=== PATIENT | male | born 1940 | race Caucasian/White ===

== ENCOUNTER 2017-07-11 08:30 | Inpatient (IN) | payer MEDICARE, BC ==
[2017-07-11] MEDS ORDERED: Amiodarone 200 MG Tab PO ONE (13:45)
[2017-07-11] MEDS ORDERED: Nystatin Crm 30 GM Tube TOP PRN (16:51)
[2017-07-11] MEDS ORDERED: Triamcinolone Acetonide 0.1% Crm 15 GM Tube TOP PRN (16:51)
[2017-07-11] MEDS ORDERED: Insulin Aspart 100 Units/ML 3 ML Pen SUBCUT SCH (17:00)
--- NOTE | 2017-07-11 19:03 | PCM.HP ---
H&P History of Present Illness - General Date of Service: 07/11/17 Admit Problem/Dx: Admission Diagnosis/Problem Admission Diagnosis/Problem Aortic valve disorder Source of Information: Patient, Old Records, Provider - History of Present Illness Initial Comments - Free Text/Narative: Patient is a 77-year-old male with a complicated history who was transferred here today for admission for swing bed for physical therapy and occupational therapy as the patient is quite debilitated after transcutaneous aortic valve replacement. A few months ago the patient was found to have kidney stones in both kidneys and in the bladder. He went to [place] to have lithotripsy and anesthesiology was concerned about his heart murmur. After he had his initial treatment, he underwent reassessment of his aortic valve and his aortic stenosis had worsened to the point where they recommended before they do the other side that they have a valve replaced. After valve replacement on 06/21/17, he had a very complicated postoperative course. He was unable to be extubated and had reduced level of consciousness. Ultimately was extubated on 07/02/2017 and transferred to intermediate care. He then had struggles with acute kidney injury, urinary tract infection, urinary retention after bladder catheter removal, replacement of catheter, debility, delirium and weakness. Today the patient feels weak but better. He is glad to be back in town and out of [facility]. He has no chest pain, no shortness of breath except with exertion, no nausea, vomiting or diarrhea. He's actually been constipated which is unusual for him. He had a bowel movement yesterday. Past medical history: #1 for severe aortic stenosis with TAVR on 06/11/17. Echo on 1020 postoperatively showed ejection fraction 55%. Normal left ventricular regional wall motion abnormalities. Grade 1 left ventricular diastolic dysfunction. Resolution of the patient's previous aortic stenosis. #2 history of remote colon cancer which was cured with resection. #3 history of coronary artery disease with CABG 4 in 2012. 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 #5 hypertension. #6 diabetes mellitus type 2, previously controlled with metformin alone at home. #7 gastroesophageal reflux disease. #8 obesity. #9 BPH. #10 bladder stones and bilateral kidney stones status post lithotripsy on the right side and the bladder. Lithotripsy on the left side pending. New issues at current hospitalization: #1 urinary tract infection currently on Ceftin for another 5 days. Cornejo catheter still in place. #2 hypokalemia. #3 recent anticoagulation with warfarin with goal 1.5-2 which was stopped at discharge. #4 Weakness and debility secondary to #1. Social history: The patient lives in [place], [place] in [facility]. He is single and has never been . He has no children. He is a nonsmoker, nondrinker. His sister is his next of kin, Sandra Philippe. Family history: The patient's mother of Alzheimer's at 77. The patient's father of some type of infection at 84. - Related Data Allergies/Adverse Reactions: Allergies Allergy/AdvReac Type Severity Reaction Status Date / Time No Known Allergies Allergy Verified 07/11/17 18:35 Home Medications: Home Meds Acetaminophen [Tylenol] 650 mg PO Q4H PRN 07/11/17 [History] Amiodarone HCl 400 mg PO TID 07/11/17 [History] Aspirin [Halfprin] 81 mg PO DAILY 07/11/17 [History] Cefuroxime [Ceftin] 500 mg PO BID 07/11/17 [History] Cholestyramine/Aspartame [Questran Light Powder] 4 gm PO WITHBREAKFAST 07/11/17 [History] Ferrous Sulfate 325 mg PO DAILY 07/11/17 [History] Finasteride 5 mg PO DAILY 07/11/17 [History] Gluc Donald Dipo Ch/Gustavo Donald/C/Ajay [Glucosamine Chondroitin Caplet] 1 tab PO BID 04/19 [History] Insulin Aspart [NovoLOG] 5 - 20 units SUBCUT Q4H 07/11/17 [History] Insulin Glarg,Human.Rec.Analog [Lantus Solostar] 15 units SUBCUT Q12H 07/11/17 [ History] Metoprolol Tartrate 12.5 mg PO DAILY 07/11/17 [History] Nystatin 1 applic TOP BID PRN 07/11/17 [History] Potassium Citrate [Urocit-K] 10 meq PO TIDMEALS 07/11/17 [History] Potassium Gluconate Tab 595 mg PO DAILY 07/11/17 [History] Ranitidine [Zantac] 150 mg PO BID 07/11/17 [History] Tamsulosin [Flomax] 0.4 mg PO DAILY 07/11/17 [History] Triamcinolone Acetonide [Triamcinolone Acetonide 0.1% Crm] 1 applic TOP BID PRN 07/11/17 [History] amLODIPine [Norvasc] 5 mg PO DAILY 07/11/17 [History] atorvaSTATin [Lipitor] 10 mg PO BEDTIME 07/11/17 [History] Past Medical History HEENT History: Reports: Impaired Vision Cardiovascular History: Reports: Bypass, Hypertension, Other (See Below) Other Cardiovascular History: aortic stenosis with RAN done, CHF Respiratory History: Reports: Intubation, Previous Gastrointestinal History: Reports: Cholelithiasis Endocrine/Metabolic History: Reports: Diabetes, Type II, Obesity/BMI 30+ Hematologic History: Reports: Iron Deficiency Oncologic (Cancer) History: Reports: Colon, Other (See Below) Other Oncologic History: skin cancer Dermatologic History: Reports: None - Infectious Disease History Infectious Disease History: Reports: Chicken Pox, Measles - Past Surgical History HEENT Surgical History: Reports: Adenoidectomy, Oral Surgery, Tonsillectomy Cardiovascular Surgical History: Reports: Coronary Artery Bypass, Valve Replacement Respiratory Surgical History: Reports: Thoracentesis GI Surgical History: Reports: Appendectomy, Cholecystectomy, Colonoscopy, Other (See Below) Other GI Surgeries/Procedures: colon resection Male Surgical History: Reports: Circumcision Endocrine Surgical History: Reports: None Musculoskeletal Surgical History: Reports: None Oncologic Surgical History: Reports: None Social & Family History - Family History Family Medical History: Noncontributory - Tobacco Use Smoking Status *Q: Never Smoker Second Hand Smoke Exposure: No - Caffeine Use Caffeine Use: Reports: Coffee - Recreational Drug Use Recreational Drug Use: No H&P Review of Systems - Review of Systems: Review Of Systems: ROS reveals no pertinent complaints other than HPI. Exam - Exam Exam: See Below - Vital Signs Vital Signs: Last Vital Signs Temp 36.4 C 07/11/17 10:37 Pulse 72 07/11/17 10:37 Resp 20 07/11/17 10:37 BP 121/54 L 07/11/17 10:37 Pulse Ox 93 L 07/11/17 10:37 Weight: 105.143 kg - Exam General: Alert, Oriented, Cooperative HEENT: PERRLA, Posterior Pharynx Clear Neck: Supple Lungs: Clear to Auscultation, Normal Respiratory Effort Cardiovascular: Regular Rate, Regular Rhythm, Normal S1, Normal S2, Systolic Murmur GI/Abdominal Exam: Normal Bowel Sounds, Soft, Non-Tender, No Distention Extremities: Pedal Edema (trace) Skin: Warm, Dry, Incision (left groin well healed.) Neuro Extensive - Mental Status: Alert, Oriented x3 Psychiatric: Alert (flat affect) *Q Meaningful Use (ADM) - VTE *Q VTE Criteria *Q: - Stroke *Q Stroke Criteria *Q: - AMI *Q AMI Criteria *Q: - Problem List (1) Debility SNOMED Code(s): 76219536 ICD Code: R53.81 - OTHER MALAISE Status: Acute Current Visit: Yes Problem Details: PT/OT to evaluate and treat. Avoid sedating medications. (2) S/P aortic valve replacement Status: Acute Current Visit: Yes Problem Details: Appears stable. Patient will follow-up with echocardiogram on 08/03 here in [place] and also with his primary care provider on the same date. (3) Diabetes mellitus type 2 in obese SNOMED Code(s): 41680313 ICD Code: E11.69 - TYPE 2 DIABETES MELLITUS WITH OTHER SPECIFIED COMPLICATION ; E66.9 - OBESITY, UNSPECIFIED Status: Acute Current Visit: Yes Problem Details: Patient previously controlled with metformin alone. We'll do insulin Levemir 15 units twice a day and glucometer checks as he has not required no coverage for 2 or 3 days. This may be able to be titrated down once the patient returns to his usual activities. He's lost about 100 pounds he thinks since 6 months ago. Was previously on 1000 mg twice a day metformin. (4) Cornejo catheter in place SNOMED Code(s): 337741707 ICD Code: Z92.89 - PERSONAL HISTORY OF OTHER MEDICAL TREATMENT Status: Acute Current Visit: Yes Problem Details: Discussed at length with the patient. In a day or 2, we will remove the catheter and straight catheterize until he is able to void. (5) Hypokalemia SNOMED Code(s): 50621976 ICD Code: E87.6 - HYPOKALEMIA Status: Acute Current Visit: Yes Problem Details: Recheck in a.m. (6) DVT prophylaxis SNOMED Code(s): 844810205 ICD Code: [id number] - Status: Acute Current Visit: Yes Problem Details: Patient was on warfarin. INR today was 2.5. We'll allow this to drift down. Once below 1.5 with a plan to start DVT coverage Lovenox unless the patient is much more active than he is currently. We will continue aspirin 81 mg daily. (7) Hypertension SNOMED Code(s): 17566429 ICD Code: I10 - ESSENTIAL (PRIMARY) HYPERTENSION Status: Acute Current Visit: Yes Problem Details: Blood pressure well controlled. Continue amiodarone and Norvasc. Patient was on metoprolol 25 mg by mouth twice a day in [place] but this was returned to his usual dose at home 12.5 mg by mouth daily on discharge. I'm going to continue this twice a day but at the lower dose. (8) Kidney stones SNOMED Code(s): 86031674 ICD Code: N20.0 - CALCULUS OF KIDNEY Status: Acute Current Visit: Yes Problem Details: Stable and pain-free at this time. (9) Hyperlipidemia SNOMED Code(s): 84371318 ICD Code: E78.5 - HYPERLIPIDEMIA, UNSPECIFIED Status: Acute Current Visit : Yes Problem Details: Patient normally on Questran. However he is constipated now and will hold while he is in the hospital. (10) JACKSON (acute kidney injury) SNOMED Code(s): 35356923 ICD Code: N17.9 - ACUTE KIDNEY FAILURE, UNSPECIFIED Status: Acute Current Visit: Yes Problem Details: Patient's previous outpatient creatinine prior to this recent hospitalization was from 1-1.2. Most recently in [place] is 1.3-1.7. Monitor. Problem List Initiated/Reviewed/Updated: Yes Orders Last 24hrs: Active Orders 24 hr Category Date Time Status Admission Status [Patient Status] [ADT] Routine ADT 07/11/17 09:15 Active OT Evaluation and Treatment [CONS] Routine Cons 07/11/17 14:23 Active PT Evaluation and Treatment [CONS] Routine Cons 07/11/17 14:23 Active Acetaminophen [Tylenol] Med 07/11/17 16:51 Active 650 mg PO Q4H PRN Amiodarone [Cordarone] Med 07/13/17 09:00 Active 400 mg PO BID Amiodarone [Cordarone] Med 07/20/17 09:00 Active 400 mg PO DAILY Amiodarone [Cordarone] Med 07/11/17 21:00 Active 400 mg PO TID Aspirin [Halfprin] Med 07/12/17 09:00 Active 81 mg PO DAILY Cefuroxime [Ceftin] Med 07/11/17 21:00 Active 500 mg PO BID Famotidine [Pepcid] Med 07/11/17 21:00 Active 20 mg PO BID Ferrous Sulfate Med 07/12/17 09:00 Active 325 mg PO DAILY Finasteride [Proscar] Med 07/12/17 09:00 Active 5 mg PO DAILY Insulin Detemir [Levemir] Med 07/11/17 21:00 Active 15 unit SUBCUT BID Metoprolol Tartrate [Lopressor] Med 07/11/17 21:00 Active 12.5 mg PO BID Nystatin [Nystatin Crm] Med 07/11/17 16:51 Active 0 gm TOP BID PRN Potassium Citrate Med 07/11/17 18:00 Active 10 meq PO TIDMEALS Tamsulosin [Flomax] Med 07/12/17 09:00 Active 0.4 mg PO DAILY Triamcinolone Acetonide [Triamcinolone Acetonide 0.1% Med 07/11/17 16:51 Active Crm] 0 gm TOP BID PRN amLODIPine [Norvasc] Med 07/12/17 09:00 Active 5 mg PO DAILY atorvaSTATin [Lipitor] Med 07/11/17 21:00 Active 10 mg PO BEDTIME Medication Orders Acetaminophen (Tylenol) 650 mg PO Q4H PRN PRN Reason: Pain/Fever Amiodarone HCl (Cordarone) 400 mg PO TID [facility] Stop: 07/12/17 21:01 Amiodarone HCl (Cordarone) 400 mg PO BID [facility] Stop: 07/19/17 21:01 Amiodarone HCl (Cordarone) 400 mg PO DAILY [facility] Amlodipine Besylate (Norvasc) 5 mg PO DAILY [facility] Aspirin (Halfprin) 81 mg PO DAILY [facility] Atorvastatin Calcium (Lipitor) 10 mg PO BEDTIME [facility] Cefuroxime Axetil (Ceftin) 500 mg PO BID [facility] Stop: 07/16/17 21:01 Famotidine (Pepcid) 20 mg PO BID [facility] Ferrous Sulfate (Ferrous Sulfate) 325 mg PO DAILY [facility] Finasteride (Proscar) 5 mg PO DAILY [facility] Insulin Detemir (Levemir) 15 unit SUBCUT BID [facility] Metoprolol Tartrate (Lopressor) 12.5 mg PO BID [facility] Nystatin (Nystatin Crm) 0 gm TOP BID PRN PRN Reason: Rash Potassium Citrate (Potassium Citrate) 10 meq PO TIDMEALS [facility] Tamsulosin HCl (Flomax) 0.4 mg PO DAILY [facility] Triamcinolone Acetonide (Triamcinolone Acetonide 0.1% Crm) 0 gm TOP BID PRN PRN Reason: Rash Assessment/Plan Comment:: CODE STATUS discussed with the patient on admission. The patient, if he were to stop breathing or have his heart stop beating, to , would want full resuscitation efforts. However, if he were to have a stroke he would not want a feeding tube if he was unable to feed himself. Thus Full code.
[2017-07-11] MEDS: Potassium Citrate 10 MEQ Tab.ER PO SCH (19:26)
[2017-07-11] MEDS: Acetaminophen 325 MG Tab PO PRN (19:30)
[2017-07-11] MEDS: Cefuroxime 250 MG Tab PO SCH (21:19)
[2017-07-11] MEDS: Amiodarone 200 MG Tab PO SCH (21:20)
[2017-07-11] MEDS: atorvaSTATin 10 MG Tab PO SCH (21:21)
[2017-07-11] MEDS: Famotidine 20 MG Tab PO SCH (21:22)
[2017-07-11] MEDS: Metoprolol Tartrate 25 MG Tab PO SCH (21:26)
[2017-07-11] MEDS: Insulin Detemir 100 Units/ML 3 ML Pen SUBCUT SCH (21:27)
[2017-07-12] MEDS: Acetaminophen 325 MG Tab PO PRN ×4 (03:31→16:31)
[2017-07-12] MEDS ORDERED: CHOLESTYRAMINE PO SCH (08:00)
[2017-07-12] MEDS ORDERED: ASPARTAME PO SCH (08:00)
[2017-07-12] MEDS: Insulin Detemir 100 Units/ML 3 ML Pen SUBCUT SCH ×2 (08:28→21:28)
[2017-07-12] MEDS: Potassium Citrate 10 MEQ Tab.ER PO SCH ×3 (08:29→17:29)
[2017-07-12] MEDS: Cefuroxime 250 MG Tab PO SCH ×2 (08:29→21:27)
[2017-07-12] MEDS: Amiodarone 200 MG Tab PO SCH ×3 (08:30→21:28)
[2017-07-12] MEDS: Ferrous Sulfate 325 MG Tab PO SCH (08:31)
[2017-07-12] MEDS: Finasteride 5 MG Tab PO SCH (08:31)
[2017-07-12] MEDS: Tamsulosin 0.4 MG Cap.ER PO SCH (08:31)
[2017-07-12] MEDS: amLODIPine 5 MG Tab PO SCH (08:31)
[2017-07-12] MEDS: Aspirin 81 MG Tab.EC PO SCH (08:31)
[2017-07-12] MEDS: Famotidine 20 MG Tab PO SCH ×2 (08:31→21:40)
[2017-07-12] MEDS: Metoprolol Tartrate 25 MG Tab PO SCH ×2 (08:32→21:39)
[2017-07-12] MEDS ORDERED: Metoprolol Tartrate 25 MG Tab PO SCH (09:00)
--- NOTE | 2017-07-12 16:18 | PCM.PN ---
- General Info Date of Service: 07/12/17 Subjective Update: 77 yo male on SB day #2. No chest pain, SOB, N/V. Had BM today. Therapy was difficult. - Patient Data Vitals - Most Recent: Last Vital Signs Temp 36.6 C 07/12/17 08:00 Pulse 68 07/12/17 08:32 Resp 20 07/12/17 08:00 BP 153/64 H 07/12/17 08:32 Pulse Ox 96 07/12/17 08:00 Weight - Most Recent: 105.143 kg I&O - Last 24 Hours: Intake & Output 07/12/17 07/12/17 07/12/17 06:59 14:59 22:59 Output Total 500 Balance -500 Lab Results Last 24 Hours: Laboratory Results - last 24 hr 07/11/17 07/12/17 07/12/17 Range/Units 22:37 06:46 06:46 WBC 7.0 (4.5-12.0) X10-3/uL RBC 3.54 L (4.30-5.75) x10(6)uL Hgb 10.3 L D (11.5-15.5) g/dL Hct 31.2 (30.0-51.3) % MCV 88.0 (80-96) fL MCH 29.1 (27.7-33.6) pg MCHC 33.1 (32.2-35.4) g/dL RDW 14.8 (11.5-15.5) % Plt Count 243 (125-369) X10(3)uL MPV 8.1 (7.4-10.4) fL Neut % (Auto) 66.8 (46-82) % Lymph % (Auto) 15.1 (13-37) % [place] % (Auto) 10.8 (4-12) % Eos % (Auto) 7 H (1.0-5.0) % Baso % (Auto) 1 (0-2) % Neut # (Auto) 4.6 (1.6-8.3) # Lymph # (Auto) 1.1 (0.6-5.0) # [place] # (Auto) 0.8 (0.0-1.3) # Eos # (Auto) 0.5 (0.0-0.8) # Baso # (Auto) 0.0 (0.0-0.2) # PT 29.3 H (8.7-11.1) INR 2.84 H (0.89-1.13) Sodium (135-145) mmol/L Potassium (3.5-5.3) mmol/L Chloride (100-110) mmol/L Carbon Dioxide (23-29) mmol/L BUN (8-23) mg/dL Creatinine (0.6-1.3) mg/dL Est Cr Clr Drug Dosing mL/min Estimated GFR (MDRD) (>60) BUN/Creatinine Ratio (9-20) Glucose (80-116) mg/dL POC Glucose 120 H (80-116) mg/dL Calcium (8.6-10.2) mg/dL Total Bilirubin (0.1-1.3) mg/dL AST (5-27) IU/L ALT (14-26) IU/L Alkaline Phosphatase (56-112) IU/L Total Protein (6.0-8.0) g/dL Albumin (3.2-4.6) g/dL Globulin g/dL Albumin/Globulin Ratio 07/12/17 Range/Units 06:46 WBC (4.5-12.0) X10-3/uL RBC (4.30-5.75) x10(6)uL Hgb (11.5-15.5) g/dL Hct (30.0-51.3) % MCV (80-96) fL MCH (27.7-33.6) pg MCHC (32.2-35.4) g/dL RDW (11.5-15.5) % Plt Count (125-369) X10(3)uL MPV (7.4-10.4) fL Neut % (Auto) (46-82) % Lymph % (Auto) (13-37) % [place] % (Auto) (4-12) % Eos % (Auto) (1.0-5.0) % Baso % (Auto) (0-2) % Neut # (Auto) (1.6-8.3) # Lymph # (Auto) (0.6-5.0) # [place] # (Auto) (0.0-1.3) # Eos # (Auto) (0.0-0.8) # Baso # (Auto) (0.0-0.2) # PT (8.7-11.1) INR (0.89-1.13) Sodium 135 (135-145) mmol/L Potassium 4.0 (3.5-5.3) mmol/L Chloride 101 (100-110) mmol/L Carbon Dioxide 26 (23-29) mmol/L BUN 29 H (8-23) mg/dL Creatinine 1.4 H (0.6-1.3) mg/dL Est Cr Clr Drug Dosing 43.43 mL/min Estimated GFR (MDRD) 49 L (>60) BUN/Creatinine Ratio 20.7 H (9-20) Glucose 148 H (80-116) mg/dL POC Glucose (80-116) mg/dL Calcium 8.2 L (8.6-10.2) mg/dL Total Bilirubin 0.7 (0.1-1.3) mg/dL AST 25 (5-27) IU/L ALT 32 H (14-26) IU/L Alkaline Phosphatase 92 (56-112) IU/L Total Protein 6.0 (6.0-8.0) g/dL Albumin 2.8 L (3.2-4.6) g/dL Globulin 3.2 g/dL Albumin/Globulin Ratio 0.9 Med Orders - Current: Current Medications Acetaminophen (Tylenol) 650 mg PO Q4H PRN PRN Reason: Pain/Fever Last Admin: 07/12/17 12:42 Dose: 650 mg Amiodarone HCl (Cordarone) 400 mg PO TID [facility] Stop: 07/12/17 21:01 Last Admin: 07/12/17 14:18 Dose: 400 mg Amiodarone HCl (Cordarone) 400 mg PO BID [facility] Stop: 07/19/17 21:01 Amiodarone HCl (Cordarone) 400 mg PO DAILY [facility] Amlodipine Besylate (Norvasc) 5 mg PO DAILY [facility] Last Admin: 07/12/17 08:31 Dose: 5 mg Aspirin (Halfprin) 81 mg PO DAILY [facility] Last Admin: 07/12/17 08:31 Dose: 81 mg Atorvastatin Calcium (Lipitor) 10 mg PO BEDTIME [facility] Last Admin: 07/11/17 21:21 Dose: 10 mg Cefuroxime Axetil (Ceftin) 500 mg PO BID [facility] Stop: 07/16/17 21:01 Last Admin: 07/12/17 08:29 Dose: 500 mg Famotidine (Pepcid) 20 mg PO BID [facility] Last Admin: 07/12/17 08:31 Dose: 20 mg Ferrous Sulfate (Ferrous Sulfate) 325 mg PO DAILY [facility] Last Admin: 07/12/17 08:31 Dose: 325 mg Finasteride (Proscar) 5 mg PO DAILY [facility] Last Admin: 07/12/17 08:31 Dose: 5 mg Insulin Detemir (Levemir) 15 unit SUBCUT BID [facility] Last Admin: 07/12/17 08:28 Dose: 15 unit Metoprolol Tartrate (Lopressor) 12.5 mg PO BID [facility] Last Admin: 07/12/17 08:32 Dose: 12.5 mg Nystatin (Nystatin Crm) 0 gm TOP BID PRN PRN Reason: Rash Potassium Citrate (Potassium Citrate) 10 meq PO TIDMEALS [facility] Last Admin: 07/12/17 12:30 Dose: 10 meq Tamsulosin HCl (Flomax) 0.4 mg PO DAILY [facility] Last Admin: 07/12/17 08:31 Dose: 0.4 mg Triamcinolone Acetonide (Triamcinolone Acetonide 0.1% Crm) 0 gm TOP BID PRN PRN Reason: Rash Discontinued Medications Amiodarone HCl (Cordarone) 400 mg PO ONETIME ONE Stop: 07/11/17 13:46 Last Admin: 07/11/17 15:04 Dose: 400 mg Metoprolol Tartrate (Lopressor) 12.5 mg PO DAILY [facility] Non-Formulary Medication (Cholestyramine/Aspartame [Questran Light Powder]) 4 gm PO WITHBREAKFAST [facility] - Exam Quality Assessment: Urine Catheter General: Alert, Oriented, Cooperative, No Acute Distress HEENT: Pupils Equal, Pupils Reactive Neck: Supple Lungs: Clear to Auscultation, Normal Respiratory Effort Cardiovascular: Regular Rate, Regular Rhythm (very little murmur today.) GI/Abdominal Exam: Normal Bowel Sounds, Soft, Non-Tender, No Distention Extremities: No Pedal Edema Skin: Warm, Dry (bruised throughout upper extremities.) Psy/Mental Status: Alert - Problem List & Annotations (1) Debility SNOMED Code(s): 45974939 Code(s): R53.81 - OTHER MALAISE Status: Acute Current Visit: Yes Annotation/Comment:: PT/OT to evaluate and treat. Avoid sedating medications. (2) S/P aortic valve replacement Status: Acute Current Visit: Yes Annotation/Comment:: Appears stable. Patient will follow-up with echocardiogram on 08/03 here in [place] and also with his primary care provider on the same date. (3) Diabetes mellitus type 2 in obese SNOMED Code(s): 79630240 Code(s): E11.69 - TYPE 2 DIABETES MELLITUS WITH OTHER SPECIFIED COMPLICATION ; E66.9 - OBESITY, UNSPECIFIED Status: Acute Current Visit: Yes Annotation /Comment:: Patient previously controlled with metformin 1000 mg BID alone. Levemir 15 units BID. BID glucometer checks. Will d/c night levemir if blood sugars come down with activity. Restart metformin when creatinine stabilizes. (4) Cornejo catheter in place SNOMED Code(s): 685616659 Code(s): Z92.89 - PERSONAL HISTORY OF OTHER MEDICAL TREATMENT Status: Acute Current Visit: Yes Annotation/Comment:: Clamping now. Will remove tomorrow am if all goes well. (5) Hypokalemia SNOMED Code(s): 43556080 Code(s): E87.6 - HYPOKALEMIA Status: Acute Current Visit: Yes Annotation/Comment:: Back to normal. (6) DVT prophylaxis SNOMED Code(s): 324833081 Code(s): UDB6218 - Status: Acute Current Visit: Yes Annotation/Comment :: 2.8 today. Once below 1.5 with a plan to start DVT coverage Lovenox unless the patient is much more active than he is currently. We will continue aspirin 81 mg daily. (7) Hypertension SNOMED Code(s): 47014136 Code(s): I10 - ESSENTIAL (PRIMARY) HYPERTENSION Status: Acute Current Visit: Yes Annotation/Comment:: Blood pressure well controlled. Continue amiodarone and Norvasc, metoprolol. (8) Kidney stones SNOMED Code(s): 27279674 Code(s): N20.0 - CALCULUS OF KIDNEY Status: Acute Current Visit: Yes Annotation/Comment:: Stable and pain-free at this time. (9) Hyperlipidemia SNOMED Code(s): 16476016 Code(s): E78.5 - HYPERLIPIDEMIA, UNSPECIFIED Status: Acute Current Visit : Yes Annotation/Comment:: Patient normally on Questran. However he is constipated now and will hold while he is in the hospital. (10) JACKSON (acute kidney injury) SNOMED Code(s): 31973838 Code(s): N17.9 - ACUTE KIDNEY FAILURE, UNSPECIFIED Status: Acute Current Visit: Yes Annotation/Comment:: Patient's previous outpatient creatinine prior to this recent hospitalization was from 1-1.2. Most recently in [place] is 1.3-1.7. Monitor. - Problem List Review Problem List Initiated/Reviewed/Updated: Yes - My Orders Last 24 Hours: My Active Orders 07/11/17 16:51 Acetaminophen [Tylenol] 650 mg PO Q4H PRN Nystatin [Nystatin Crm] 0 gm TOP BID PRN Triamcinolone Acetonide [Triamcinolone Acetonide 0.1% Crm] 0 gm TOP BID PRN 07/11/17 18:00 Potassium Citrate 10 meq PO TIDMEALS 07/11/17 19:18 Code Status [Resuscitation Status] Routine 07/11/17 21:00 Amiodarone [Cordarone] 400 mg PO TID Cefuroxime [Ceftin] 500 mg PO BID Famotidine [Pepcid] 20 mg PO BID Insulin Detemir [Levemir] 15 unit SUBCUT BID Metoprolol Tartrate [Lopressor] 12.5 mg PO BID atorvaSTATin [Lipitor] 10 mg PO BEDTIME 07/12/17 09:00 Aspirin [Halfprin] 81 mg PO DAILY Ferrous Sulfate 325 mg PO DAILY Finasteride [Proscar] 5 mg PO DAILY Tamsulosin [Flomax] 0.4 mg PO DAILY amLODIPine [Norvasc] 5 mg PO DAILY 07/12/17 Lunch Heart Healthy Diet [DIET] 07/13/17 05:11 CBC WITH AUTO DIFF [HEME] AM COMPREHENSIVE METABOLIC PN,CMP [CHEM] AM 07/13/17 09:00 Amiodarone [Cordarone] 400 mg PO BID 07/20/17 09:00 Amiodarone [Cordarone] 400 mg PO DAILY - Plan Plan:: CODE STATUS discussed with the patient on admission. The patient, if he were to stop breathing or have his heart stop beating, to , would want full resuscitation efforts. However, if he were to have a stroke he would not want a feeding tube if he was unable to feed himself. Thus Full code.
[2017-07-12] MEDS: atorvaSTATin 10 MG Tab PO SCH (21:31)
[2017-07-13] MEDS: Potassium Citrate 10 MEQ Tab.ER PO SCH ×3 (08:03→18:02)
[2017-07-13] MEDS: Ferrous Sulfate 325 MG Tab PO SCH (08:04)
[2017-07-13] MEDS: Amiodarone 200 MG Tab PO SCH ×2 (08:04→20:10)
[2017-07-13] MEDS: Tamsulosin 0.4 MG Cap.ER PO SCH (08:04)
[2017-07-13] MEDS: Insulin Detemir 100 Units/ML 3 ML Pen SUBCUT SCH ×2 (08:04→20:12)
[2017-07-13] MEDS: Cefuroxime 250 MG Tab PO SCH ×2 (08:04→20:09)
[2017-07-13] MEDS: Aspirin 81 MG Tab.EC PO SCH (08:04)
[2017-07-13] MEDS: Metoprolol Tartrate 25 MG Tab PO SCH ×2 (08:05→20:16)
[2017-07-13] MEDS: amLODIPine 5 MG Tab PO SCH (08:06)
[2017-07-13] MEDS: Acetaminophen 325 MG Tab PO PRN ×2 (08:06→13:29)
[2017-07-13] MEDS: Finasteride 5 MG Tab PO SCH (08:06)
[2017-07-13] MEDS: Famotidine 20 MG Tab PO SCH ×2 (08:06→20:17)
--- NOTE | 2017-07-13 17:42 | PCM.PN ---
- General Info Date of Service: 07/13/17 - Patient Data Vitals - Most Recent: Last Vital Signs Temp 97.5 F 07/13/17 08:00 Pulse 92 07/13/17 08:05 Resp 18 07/13/17 08:00 BP 156/72 H 07/13/17 08:06 Pulse Ox 96 07/13/17 08:00 Weight - Most Recent: 105.506 kg I&O - Last 24 Hours: Intake & Output 07/13/17 07/13/17 07/13/17 06:59 14:59 22:59 Intake Total 600 Output Total 850 Balance -850 600 Lab Results Last 24 Hours: Laboratory Results - last 24 hr 07/13/17 07/13/17 Range/Units 06:30 06:30 WBC 7.6 (4.5-12.0) X10-3/uL RBC 3.60 L (4.30-5.75) x10(6)uL Hgb 10.6 L (11.5-15.5) g/dL Hct 31.4 (30.0-51.3) % MCV 87.3 (80-96) fL MCH 29.4 (27.7-33.6) pg MCHC 33.7 (32.2-35.4) g/dL RDW 14.3 (11.5-15.5) % Plt Count 223 (125-369) X10(3)uL MPV 8.1 (7.4-10.4) fL Neut % (Auto) 73.1 (46-82) % Lymph % (Auto) 12.3 L (13-37) % [facility] % (Auto) 9.8 (4-12) % Eos % (Auto) 5 (1.0-5.0) % Baso % (Auto) 0 (0-2) % Neut # (Auto) 5.6 (1.6-8.3) # Lymph # (Auto) 0.9 (0.6-5.0) # [facility] # (Auto) 0.7 (0.0-1.3) # Eos # (Auto) 0.4 (0.0-0.8) # Baso # (Auto) 0.0 (0.0-0.2) # Sodium 136 (135-145) mmol/L Potassium 4.0 (3.5-5.3) mmol/L Chloride 104 (100-110) mmol/L Carbon Dioxide 24 (23-29) mmol/L BUN 21 (8-23) mg/dL Creatinine 1.3 (0.6-1.3) mg/dL Est Cr Clr Drug Dosing 46.77 mL/min Estimated GFR (MDRD) 54 L (>60) BUN/Creatinine Ratio 16.2 (9-20) Glucose 109 (80-116) mg/dL Calcium 8.4 L (8.6-10.2) mg/dL Total Bilirubin 0.8 (0.1-1.3) mg/dL AST 24 (5-27) IU/L ALT 28 H D (14-26) IU/L Alkaline Phosphatase 87 (56-112) IU/L Total Protein 6.7 (6.0-8.0) g/dL Albumin 2.8 L (3.2-4.6) g/dL Globulin 3.9 g/dL Albumin/Globulin Ratio 0.7 Med Orders - Current: Current Medications Acetaminophen (Tylenol) 650 mg PO Q4H PRN PRN Reason: Pain/Fever Last Admin: 07/13/17 13:29 Dose: 650 mg Amiodarone HCl (Cordarone) 400 mg PO BID [facility] Stop: 07/19/17 21:01 Last Admin: 07/13/17 08:04 Dose: 400 mg Amiodarone HCl (Cordarone) 400 mg PO DAILY [facility] Amlodipine Besylate (Norvasc) 5 mg PO DAILY [facility] Last Admin: 07/13/17 08:06 Dose: 5 mg Aspirin (Halfprin) 81 mg PO DAILY [facility] Last Admin: 07/13/17 08:04 Dose: 81 mg Atorvastatin Calcium (Lipitor) 10 mg PO BEDTIME [facility] Last Admin: 07/12/17 21:31 Dose: 10 mg Cefuroxime Axetil (Ceftin) 500 mg PO BID [facility] Stop: 07/16/17 21:01 Last Admin: 07/13/17 08:04 Dose: 500 mg Famotidine (Pepcid) 20 mg PO BID [facility] Last Admin: 07/13/17 08:06 Dose: 20 mg Ferrous Sulfate (Ferrous Sulfate) 325 mg PO DAILY [facility] Last Admin: 07/13/17 08:04 Dose: 325 mg Finasteride (Proscar) 5 mg PO DAILY [facility] Last Admin: 07/13/17 08:06 Dose: 5 mg Insulin Detemir (Levemir) 15 unit SUBCUT BID [facility] Last Admin: 07/13/17 08:04 Dose: 15 unit Metoprolol Tartrate (Lopressor) 12.5 mg PO BID [facility] Last Admin: 07/13/17 08:05 Dose: 12.5 mg Nystatin (Nystatin Crm) 0 gm TOP BID PRN PRN Reason: Rash Potassium Citrate (Potassium Citrate) 10 meq PO TIDMEALS [facility] Last Admin: 07/13/17 13:26 Dose: 10 meq Tamsulosin HCl (Flomax) 0.4 mg PO DAILY [facility] Last Admin: 07/13/17 08:04 Dose: 0.4 mg Triamcinolone Acetonide (Triamcinolone Acetonide 0.1% Crm) 0 gm TOP BID PRN PRN Reason: Rash Discontinued Medications Amiodarone HCl (Cordarone) 400 mg PO ONETIME ONE Stop: 07/11/17 13:46 Last Admin: 07/11/17 15:04 Dose: 400 mg Amiodarone HCl (Cordarone) 400 mg PO TID [facility] Stop: 07/12/17 21:01 Last Admin: 07/12/17 21:28 Dose: 400 mg Metoprolol Tartrate (Lopressor) 12.5 mg PO DAILY [facility] Non-Formulary Medication (Cholestyramine/Aspartame [Questran Light Powder]) 4 gm PO WITHBREAKFAST [facility] - Plan Plan:: CODE STATUS discussed with the patient on admission. The patient, if he were to stop breathing or have his heart stop beating, to , would want full resuscitation efforts. However, if he were to have a stroke he would not want a feeding tube if he was unable to feed himself. Thus Full code.
[2017-07-13] MEDS: atorvaSTATin 10 MG Tab PO SCH (20:11)
[2017-07-14] MEDS: Acetaminophen 325 MG Tab PO PRN (07:01)
[2017-07-14] MEDS: Cefuroxime 250 MG Tab PO SCH ×2 (09:23→21:06)
[2017-07-14] MEDS: Potassium Citrate 10 MEQ Tab.ER PO SCH ×3 (09:23→18:41)
[2017-07-14] MEDS: Amiodarone 200 MG Tab PO SCH ×2 (09:24→21:06)
[2017-07-14] MEDS: Aspirin 81 MG Tab.EC PO SCH (09:25)
[2017-07-14] MEDS: Ferrous Sulfate 325 MG Tab PO SCH (09:25)
[2017-07-14] MEDS: Tamsulosin 0.4 MG Cap.ER PO SCH (09:26)
[2017-07-14] MEDS: Insulin Detemir 100 Units/ML 3 ML Pen SUBCUT SCH ×2 (09:27→21:28)
[2017-07-14] MEDS: Metoprolol Tartrate 25 MG Tab PO SCH ×2 (09:28→21:07)
[2017-07-14] MEDS: amLODIPine 5 MG Tab PO SCH (09:28)
[2017-07-14] MEDS: Famotidine 20 MG Tab PO SCH ×2 (09:29→21:09)
[2017-07-14] MEDS: Finasteride 5 MG Tab PO SCH (09:29)
[2017-07-14] MEDS: atorvaSTATin 10 MG Tab PO SCH (21:07)
[2017-07-15] MEDS: Acetaminophen 325 MG Tab PO PRN ×3 (00:53→21:20)
[2017-07-15] MEDS: Potassium Citrate 10 MEQ Tab.ER PO SCH ×3 (07:33→17:50)
[2017-07-15] MEDS: Finasteride 5 MG Tab PO SCH (09:21)
[2017-07-15] MEDS: Tamsulosin 0.4 MG Cap.ER PO SCH (09:21)
[2017-07-15] MEDS: Metoprolol Tartrate 25 MG Tab PO SCH ×2 (09:21→21:08)
[2017-07-15] MEDS: Famotidine 20 MG Tab PO SCH ×2 (09:22→21:09)
[2017-07-15] MEDS: Cefuroxime 250 MG Tab PO SCH ×2 (09:22→21:07)
[2017-07-15] MEDS: Amiodarone 200 MG Tab PO SCH ×2 (09:22→21:08)
[2017-07-15] MEDS: Aspirin 81 MG Tab.EC PO SCH (09:23)
[2017-07-15] MEDS: Ferrous Sulfate 325 MG Tab PO SCH (09:23)
[2017-07-15] MEDS: Insulin Detemir 100 Units/ML 3 ML Pen SUBCUT SCH ×2 (09:23→21:10)
[2017-07-15] MEDS: amLODIPine 5 MG Tab PO SCH (11:06)
[2017-07-15] MEDS ORDERED: busPIRone 5 MG Tab ONE ×2 (21:04→21:06)
[2017-07-15] MEDS: busPIRone 10 MG Tab PO SCH (21:07)
[2017-07-15] MEDS: atorvaSTATin 10 MG Tab PO SCH (21:08)
[2017-07-16] MEDS: Acetaminophen 325 MG Tab PO PRN ×2 (05:08→09:05)
[2017-07-16] MEDS: Famotidine 20 MG Tab PO SCH ×2 (08:48→22:04)
[2017-07-16] MEDS: Ferrous Sulfate 325 MG Tab PO SCH (08:48)
[2017-07-16] MEDS: busPIRone 10 MG Tab PO SCH ×2 (08:48→22:02)
[2017-07-16] MEDS: amLODIPine 5 MG Tab PO SCH (08:49)
[2017-07-16] MEDS: Metoprolol Tartrate 25 MG Tab PO SCH ×2 (08:49→22:03)
[2017-07-16] MEDS: Finasteride 5 MG Tab PO SCH (08:49)
[2017-07-16] MEDS: Aspirin 81 MG Tab.EC PO SCH (08:50)
[2017-07-16] MEDS: Tamsulosin 0.4 MG Cap.ER PO SCH (08:50)
[2017-07-16] MEDS: Amiodarone 200 MG Tab PO SCH ×2 (08:50→22:02)
[2017-07-16] MEDS: Cefuroxime 250 MG Tab PO SCH ×2 (08:51→22:02)
[2017-07-16] MEDS: Potassium Citrate 10 MEQ Tab.ER PO SCH ×3 (08:51→18:38)
[2017-07-16] MEDS: Insulin Detemir 100 Units/ML 3 ML Pen SUBCUT SCH ×2 (08:55→22:02)
[2017-07-16] MEDS ORDERED: Triamcinolone Acetonide 40 MG/ML 1 ML MDV INJECT ONE (14:40)
[2017-07-16] MEDS ORDERED: Bupivacaine 0.5% 30 ML SDV INJECT ONE (14:40)
[2017-07-16] MEDS ORDERED: Lidocaine 2% 5 ML SDV INJECT ONE (15:15)
--- NOTE | 2017-07-16 17:17 | PCM.SN ---
- Free Text/Narrative Note: 07/16/2017: Procedure note: Bilateral knee injections Reason: Pain, degenerative arthritis Time out: completed. see chart. Allergies: none Contraindications: none. Procedure: Removal of galindo cath. no complications with removal, however anderson blood was noted to drip from the urethral meatus roughly 1 cc. will monitor.
[2017-07-16] MEDS: atorvaSTATin 10 MG Tab PO SCH (22:03)
[2017-07-16] MEDS: Acetaminophen 500 MG Tab PO SCH (22:04)
[2017-07-17] MEDS: Acetaminophen 325 MG Tab PO PRN (07:50)
[2017-07-17] MEDS: Potassium Citrate 10 MEQ Tab.ER PO SCH ×3 (08:30→18:05)
[2017-07-17] MEDS: busPIRone 10 MG Tab PO SCH ×2 (09:36→20:46)
[2017-07-17] MEDS: Tamsulosin 0.4 MG Cap.ER PO SCH (09:37)
[2017-07-17] MEDS: Amiodarone 200 MG Tab PO SCH ×2 (09:37→20:46)
[2017-07-17] MEDS: Ferrous Sulfate 325 MG Tab PO SCH (09:37)
[2017-07-17] MEDS: Aspirin 81 MG Tab.EC PO SCH (09:37)
[2017-07-17] MEDS: Metoprolol Tartrate 25 MG Tab PO SCH ×2 (09:38→20:47)
[2017-07-17] MEDS: amLODIPine 5 MG Tab PO SCH (09:38)
[2017-07-17] MEDS: Famotidine 20 MG Tab PO SCH ×2 (09:39→20:47)
[2017-07-17] MEDS: Finasteride 5 MG Tab PO SCH (09:39)
[2017-07-17] MEDS ORDERED: Fluconazole 150 MG Tab PO ONE (10:10)
[2017-07-17] MEDS: Insulin Detemir 100 Units/ML 3 ML Pen SUBCUT SCH (10:25)
[2017-07-17] MEDS: Acetaminophen 500 MG Tab PO SCH ×2 (12:24→20:47)
[2017-07-17] MEDS: atorvaSTATin 10 MG Tab PO SCH (20:46)
[2017-07-18] MEDS: Metoprolol Tartrate 25 MG Tab PO SCH ×2 (08:51→20:39)
[2017-07-18] MEDS: busPIRone 10 MG Tab PO SCH ×2 (08:51→20:41)
[2017-07-18] MEDS: Potassium Citrate 10 MEQ Tab.ER PO SCH ×3 (08:51→17:52)
[2017-07-18] MEDS: Tamsulosin 0.4 MG Cap.ER PO SCH (08:51)
[2017-07-18] MEDS: Aspirin 81 MG Tab.EC PO SCH (08:51)
[2017-07-18] MEDS: Ferrous Sulfate 325 MG Tab PO SCH (08:51)
[2017-07-18] MEDS: Amiodarone 200 MG Tab PO SCH ×2 (08:51→20:38)
[2017-07-18] MEDS: amLODIPine 5 MG Tab PO SCH (08:52)
[2017-07-18] MEDS: Famotidine 20 MG Tab PO SCH ×2 (08:52→20:38)
[2017-07-18] MEDS: Finasteride 5 MG Tab PO SCH (08:52)
[2017-07-18] MEDS: Acetaminophen 500 MG Tab PO SCH ×2 (08:52→20:38)
[2017-07-18] MEDS: guaiFENesin 600 MG Tab.ER PO PRN ×2 (15:53→22:06)
[2017-07-18] MEDS: metFORMIN 1,000 MG Tab PO SCH (17:52)
[2017-07-18] MEDS: atorvaSTATin 10 MG Tab PO SCH (20:38)
[2017-07-19] MEDS: guaiFENesin 600 MG Tab.ER PO PRN ×2 (06:35→16:52)
[2017-07-19] MEDS: Potassium Citrate 10 MEQ Tab.ER PO SCH ×3 (07:30→17:12)
[2017-07-19] MEDS: metFORMIN 1,000 MG Tab PO SCH ×2 (07:31→17:12)
[2017-07-19] MEDS: Acetaminophen 500 MG Tab PO SCH ×2 (08:08→21:45)
[2017-07-19] MEDS: busPIRone 10 MG Tab PO SCH ×2 (08:38→21:42)
[2017-07-19] MEDS: Amiodarone 200 MG Tab PO SCH ×2 (08:38→21:42)
[2017-07-19] MEDS: Ferrous Sulfate 325 MG Tab PO SCH (08:39)
[2017-07-19] MEDS: Aspirin 81 MG Tab.EC PO SCH (08:39)
[2017-07-19] MEDS: Tamsulosin 0.4 MG Cap.ER PO SCH (08:39)
[2017-07-19] MEDS: Metoprolol Tartrate 25 MG Tab PO SCH (08:39)
[2017-07-19] MEDS: Famotidine 20 MG Tab PO SCH ×2 (08:39→21:44)
[2017-07-19] MEDS: amLODIPine 5 MG Tab PO SCH (08:39)
[2017-07-19] MEDS: Finasteride 5 MG Tab PO SCH (08:40)
--- NOTE | 2017-07-19 17:28 | PCM.DCSUM1 ---
Discharge Summary - Discharge Data Discharge Date: 07/20/17 Discharge Disposition: Home, W Home Health Agency 06 Condition: Good - Discharge Diagnosis/Problem(s) (1) S/P aortic valve replacement Status: Acute Current Visit: Yes Problem Details: Appears stable. Patient will follow-up with echocardiogram on 08/03 here in [place] and also with his primary care provider on the same date. (2) Primary osteoarthritis of knees, bilateral SNOMED Code(s): 808721818 ICD Code: M17.0 - BILATERAL PRIMARY OSTEOARTHRITIS OF KNEE Status: Acute Current Visit: Yes (3) Yeast cystitis SNOMED Code(s): 824921306 ICD Code: B37.41 - CANDIDAL CYSTITIS AND URETHRITIS Status: Acute Current Visit: Yes (4) Recurrent pain of both knees SNOMED Code(s): 75923494 ICD Code: M25.561 - PAIN IN RIGHT KNEE; M25.562 - PAIN IN LEFT KNEE Status : Acute Current Visit: Yes - Patient Summary/Data Operative Procedure(s) Performed: Bilateral Knee injections for OA. (kenalog 40mg/2%lidocaine plain-2ml/0.5% marcaine- 2ml) to each knee using inferior medial approach without complication. -Dr. Danielle Magana MD Consults: Consultations 07/11/17 14:23 OT Evaluation and Treatment [CONS] Routine Please Evaluate and Treat. OT Reason for Consult: Strengthening This query below is only for informational purposes and is not editable. Admission Diagnosis/Problem: Aortic valve disorder PT Evaluation and Treatment [CONS] Routine Please Evaluate and Treat. PT Reason for Consult: Strengthening This query below is only for informational purposes and is not editable. Admission Diagnosis/Problem: Aortic valve disorder - Patient Instructions Diet: Heart Healthy Diet Activity: As Tolerated, Cough & Deep Breathe Driving: May Drive Today Showering/Bathing: May Shower Notify Provider of: Fever, Increased Pain, Nausea and/or Vomiting Other/Special Instructions: inability to void. - Discharge Plan Home Medications: Home Meds Acetaminophen [Tylenol] 650 mg PO Q4H PRN 07/11/17 [History] Amiodarone HCl 400 mg PO DAILY 07/11/17 [History] Aspirin [Halfprin] 81 mg PO DAILY 07/11/17 [History] Cefuroxime [Ceftin] 500 mg PO BID 07/11/17 [History] Cholestyramine/Aspartame [Questran Light Powder] 4 gm PO WITHBREAKFAST 07/11/17 [History] Ferrous Sulfate 325 mg PO DAILY 07/11/17 [History] Finasteride 5 mg PO DAILY 07/11/17 [History] Gluc Donald Dipo Ch/Gustavo Donald/C/Ajay [Glucosamine Chondroitin Caplet] 1 tab PO BID 04/19 [History] Metoprolol Tartrate 12.5 mg PO DAILY 07/11/17 [History] Nystatin 1 applic TOP BID PRN 07/11/17 [History] Potassium Citrate [Urocit-K] 10 meq PO TIDMEALS 07/11/17 [History] Potassium Gluconate Tab 595 mg PO DAILY 07/11/17 [History] Ranitidine [Zantac] 150 mg PO BID 07/11/17 [History] Tamsulosin [Flomax] 0.4 mg PO DAILY 07/11/17 [History] Triamcinolone Acetonide [Triamcinolone Acetonide 0.1% Crm] 1 applic TOP BID PRN 07/11/17 [History] amLODIPine [Norvasc] 5 mg PO DAILY 07/11/17 [History] atorvaSTATin [Lipitor] 10 mg PO BEDTIME 07/11/17 [History] metFORMIN [Glucophage] 1,000 mg PO BIDMEALS 07/19/17 [History] Patient Handouts: Type 2 Diabetes Mellitus, Adult, Amiodarone tablets, Buspirone tablets, Fall Prevention in Hospitals, Adult, Venous Thromboembolism Prevention - Discharge Summary/Plan Comment DC Time >30 min.: Yes - Patient Data Vitals - Most Recent: Last Vital Signs Temp 97.9 F 07/19/17 08:00 Pulse 60 07/19/17 08:39 Resp 18 07/19/17 08:00 BP 129/60 07/19/17 08:39 Pulse Ox 97 07/19/17 08:00 Weight - Most Recent: 105.506 kg Lab Results - Last 24 hrs: Laboratory Results - last 24 hr 07/19/17 Range/Units 08:20 POC Glucose 137 H (80-116) mg/dL Med Orders - Current: Current Medications Acetaminophen (Tylenol) 650 mg PO Q4H PRN PRN Reason: Pain/Fever Last Admin: 07/17/17 07:50 Dose: 650 mg Acetaminophen (Tylenol Extra Strength) 1,000 mg PO BID [facility] Last Admin: 07/19/17 08:08 Dose: 1,000 mg Amiodarone HCl (Cordarone) 400 mg PO BID [facility] Stop: 07/19/17 21:01 Last Admin: 07/19/17 08:38 Dose: 400 mg Amiodarone HCl (Cordarone) 400 mg PO DAILY [facility] Amlodipine Besylate (Norvasc) 5 mg PO DAILY [facility] Last Admin: 07/19/17 08:39 Dose: 5 mg Aspirin (Halfprin) 81 mg PO DAILY [facility] Last Admin: 07/19/17 08:39 Dose: 81 mg Atorvastatin Calcium (Lipitor) 10 mg PO BEDTIME [facility] Last Admin: 07/18/17 20:38 Dose: 10 mg Buspirone HCl (Buspar) 10 mg PO BID [facility] Last Admin: 07/19/17 08:38 Dose: 10 mg Famotidine (Pepcid) 20 mg PO BID [facility] Last Admin: 07/19/17 08:39 Dose: 20 mg Ferrous Sulfate (Ferrous Sulfate) 325 mg PO DAILY [facility] Last Admin: 07/19/17 08:39 Dose: 325 mg Finasteride (Proscar) 5 mg PO DAILY [facility] Last Admin: 07/19/17 08:40 Dose: 5 mg Guaifenesin (Mucinex) 600 mg PO TID PRN PRN Reason: Cough Last Admin: 07/19/17 16:52 Dose: 600 mg Metformin HCl (Glucophage) 1,000 mg PO BIDMEALS [facility] Last Admin: 07/19/17 17:12 Dose: 1,000 mg Metoprolol Tartrate (Lopressor) 12.5 mg PO DAILY [facility] Nystatin (Nystatin Crm) 0 gm TOP BID PRN PRN Reason: Rash Potassium Citrate (Potassium Citrate) 10 meq PO TIDMEALS [facility] Last Admin: 07/19/17 17:12 Dose: 10 meq Tamsulosin HCl (Flomax) 0.4 mg PO DAILY [facility] Last Admin: 07/19/17 08:39 Dose: 0.4 mg Triamcinolone Acetonide (Triamcinolone Acetonide 0.1% Crm) 0 gm TOP BID PRN PRN Reason: Rash Discontinued Medications Amiodarone HCl (Cordarone) 400 mg PO ONETIME ONE Stop: 07/11/17 13:46 Last Admin: 07/11/17 15:04 Dose: 400 mg Amiodarone HCl (Cordarone) 400 mg PO TID [facility] Stop: 07/12/17 21:01 Last Admin: 07/12/17 21:28 Dose: 400 mg Bupivacaine HCl (Marcaine 0.5%) 30 ml INJECT ONETIME ONE Stop: 07/16/17 14:41 Last Admin: 07/17/17 02:37 Dose: Not Given Buspirone HCl (Buspar) Confirm Administered Dose 5 mg .ROUTE .STK-MED ONE Stop: 07/15/17 21:05 Last Admin: 07/15/17 22:13 Dose: Not Given Buspirone HCl (Buspar) Confirm Administered Dose 5 mg .ROUTE .STK-MED ONE Stop: 07/15/17 21:07 Last Admin: 07/15/17 22:13 Dose: Not Given Cefuroxime Axetil (Ceftin) 500 mg PO BID [facility] Stop: 07/16/17 21:01 Last Admin: 07/16/17 22:02 Dose: 500 mg Fluconazole (Diflucan) 150 mg PO ONETIME ONE Stop: 07/17/17 10:11 Last Admin: 07/17/17 12:24 Dose: 150 mg Insulin Detemir (Levemir) 15 unit SUBCUT BID [facility] Last Admin: 07/17/17 10:25 Dose: 15 unit Lidocaine (Xylocaine-Mpf 2%) 10 ml INJECT ONETIME ONE Stop: 07/16/17 15:16 Last Admin: 07/17/17 02:38 Dose: Not Given Metoprolol Tartrate (Lopressor) 12.5 mg PO DAILY [facility] Metoprolol Tartrate (Lopressor) 12.5 mg PO BID [facility] Last Admin: 07/19/17 08:39 Dose: 12.5 mg Non-Formulary Medication (Cholestyramine/Aspartame [Questran Light Powder]) 4 gm PO WITHBREAKFAST [facility] Triamcinolone Acetonide (Kenalog-40) 40 mg INJECT ONETIME ONE Stop: 07/16/17 14:41 Last Admin: 07/17/17 02:37 Dose: Not Given *Q Meaningful Use (DIS) - VTE *Q VTE Criteria *Q: - Stroke *Q Stroke Criteria *Q: - AMI *Q AMI Criteria *Q:
[2017-07-19] MEDS ORDERED: guaiFENesin/Dextromethorphan 100-10 MG/5 ML Soln 5 ML Cup PO PRN (19:26)
[2017-07-19] MEDS: atorvaSTATin 10 MG Tab PO SCH (21:43)
[2017-07-19] MEDS: guaiFENesin/Dextromethorphan 100-10 MG/5 ML Soln 5 ML Cup PO PRN (21:46)
[2017-07-20] MEDS: guaiFENesin/Dextromethorphan 100-10 MG/5 ML Soln 5 ML Cup PO PRN ×2 (03:33→10:52)
[2017-07-20] MEDS: Acetaminophen 325 MG Tab PO PRN (06:42)
[2017-07-20] MEDS: metFORMIN 1,000 MG Tab PO SCH (08:06)
[2017-07-20] MEDS: Potassium Citrate 10 MEQ Tab.ER PO SCH (08:06)
[2017-07-20] MEDS: Aspirin 81 MG Tab.EC PO SCH (08:55)
[2017-07-20] MEDS: Finasteride 5 MG Tab PO SCH (08:56)
[2017-07-20] MEDS: Tamsulosin 0.4 MG Cap.ER PO SCH (08:56)
[2017-07-20] MEDS: Ferrous Sulfate 325 MG Tab PO SCH (08:56)
[2017-07-20] MEDS: busPIRone 10 MG Tab PO SCH (08:56)
[2017-07-20] MEDS: amLODIPine 5 MG Tab PO SCH (08:56)
[2017-07-20] MEDS: Famotidine 20 MG Tab PO SCH (08:56)
[2017-07-20] MEDS ORDERED: Amiodarone 200 MG Tab PO SCH (09:00)
[2017-07-20] MEDS ORDERED: Metoprolol Tartrate 25 MG Tab PO SCH (09:00)
[2017-07-20] MEDS: Acetaminophen 500 MG Tab PO SCH (10:52)
--- NOTE | 2017-07-21 05:21 | DISCH ---
DISCHARGE DATE: 07/20/2017 REASON FOR ADMISSION: 1. Status post aortic valve replacement. 2. Debility. 3. Type 2 diabetes. 4. Anxiety. 5. Hypertension. 6. History of kidney stones. 7. Hyperlipidemia. 8. Generalized weakness. 9. Cardiac rehab. CONSULTATIONS: Physical and Occupational Therapy. BRIEF HISTORY AND HOSPITAL COURSE: This 77-year-old male was brought in on the 8th after aortic valve replacement on 06/21/2017. He had a complicated postoperative course and had to spend some time in the ICU. He was extubated on 07/02/2017. He had some struggles with acute kidney injury, UTI, delirium, and weakness, and was sent here for rehab and strengthening. He has done well physically speaking, and he is being discharged today to cardiac rehab. DISCHARGE MEDICATIONS: 1. Aspirin 81 mg a day. 2. Acetaminophen p.r.n. 3. Amiodarone 400 mg a day. 4. Amlodipine 5 mg a day. 5. Lipitor 10 mg daily. 6. BuSpar 10 mg b.i.d. 7. Famotidine 20 mg b.i.d. 8. Ferrous sulfate 325 mg a day. 9. Finasteride 5 mg daily. 10.Metoprolol 12.5 mg a day. 11.Tamsulosin 0.4 mg daily. Please note that I spent more than 35 minutes in discharge of the patient, and he will continue with physical therapy and cardiac rehab at home. /[id number] SAMM/ELDER
== END 2017-07-20 12:05 | disposition home health service (06) | DRG 948 ==
LOC: FB.MS 09:57
PROVIDERS: ADMIT Family Medicine; ATTEND Family Medicine
PROC: 3E0U33Z Introduction of Anti-inflammatory into Joints, Percutaneous Approach (ICD-10-PCS; principal; 2017-07-16)
PROC: 3E0U3BZ Introduction of Anesthetic Agent into Joints, Percutaneous Approach (ICD-10-PCS; 2017-07-16)
DX: R53.81 Other malaise (principal); N39.0 Urinary tract infection, site not specified; N17.9 Acute kidney failure, unspecified; Z95.2 Presence of prosthetic heart valve; Z98.890 Other specified postprocedural states; E11.69 Type 2 diabetes mellitus with other specified complication; Z79.4 Long term (current) use of insulin; E66.9 Obesity, unspecified; I25.10 Atherosclerotic heart disease of native coronary artery without angina pectoris; Z95.1 Presence of aortocoronary bypass graft; K21.9 Gastro-esophageal reflux disease without esophagitis; H54.7 Unspecified visual loss; E87.6 Hypokalemia; E78.5 Hyperlipidemia, unspecified; M17.0 Bilateral primary osteoarthritis of knee; I10 Essential (primary) hypertension; Z85.038 Personal history of other malignant neoplasm of large intestine; Z85.828 Personal history of other malignant neoplasm of skin; Z87.442 Personal history of urinary calculi; N40.0 Benign prostatic hyperplasia without lower urinary tract symptoms; Z79.82 Long term (current) use of aspirin
CPT/HCPCS: 36415; 51701; 80048; 80053; 81001; 82962; 83036; 85025; 85610; 87086; 97110-GO; 97110-GP; 97112-GP; 97116-GP; 97162-GP; 97165-GO; 97530-GO-KX; 97530-GP; 97535-GO; A9270-GY

== ENCOUNTER 2018-01-09 19:10 | Emergency (ER) | payer MEDICARE, BC ==
--- NOTE | 2018-01-09 20:26 | EDM.PDOC ---
ED HPI GENERAL MEDICAL PROBLEM - General Chief Complaint: Genitourinary Problem Time Seen by Provider: 01/09/18 19:21 Source of Information: Reports: Patient History Limitations: Reports: No Limitations - History of Present Illness INITIAL COMMENTS - FREE TEXT/NARRATIVE: c/o abd pain pain in suprapubic area, unable to void x 24h, able to void yesterday altho would take 2 voids to empty completely, nocturia x 1-2 last night, today has not been able to empty his bladder, inc'd pressure not had a galindo in the past except 06/19 when in [place] for volve replacement h/o kidney and bladder stones says he has prostate problems, sees urologist Dr Hirsch, not able to be more specific, thinks he is not on prostate meds altho his med list includes tamsulosin no f/c/d otherwise feeling well no n/v - Related Data Allergies Allergy/AdvReac Type Severity Reaction Status Date / Time No Known Allergies Allergy Verified 01/09/18 19:20 Home Meds: Home Meds Acetaminophen [Tylenol] 650 mg PO Q4H PRN 07/11/17 [History] Aspirin [Halfprin] 81 mg PO DAILY 07/11/17 [History] Ferrous Sulfate 325 mg PO DAILY 07/11/17 [History] Finasteride 5 mg PO DAILY 07/11/17 [History] Gluc Donald Dipo Ch/Gustavo Donald/C/Ajay [Glucosamine Chondroitin Caplet] 1 tab PO BID 04/19 [History] Metoprolol Tartrate 12.5 mg PO DAILY 07/11/17 [History] Potassium Citrate [Urocit-K] 10 meq PO TIDMEALS 07/11/17 [History] Ranitidine [Zantac] 150 mg PO BID 07/11/17 [History] Tamsulosin [Flomax] 0.4 mg PO DAILY 07/11/17 [History] amLODIPine [Norvasc] 5 mg PO DAILY 07/11/17 [History] atorvaSTATin [Lipitor] 10 mg PO BEDTIME 07/11/17 [History] metFORMIN [Glucophage] 1,000 mg PO BIDMEALS 07/19/17 [History] Amiodarone [Cordarone] 400 mg PO DAILY #60 tablet 07/20/17 [Rx] busPIRone [Buspar] 10 mg PO BID #60 tab 07/20/17 [Rx] Ciprofloxacin HCl [Cipro] 500 mg PO BID #28 tablet 01/09/18 [Rx] Past Medical History HEENT History: Reports: Impaired Vision Cardiovascular History: Reports: Bypass, Hypertension, Other (See Below) Other Cardiovascular History: aortic stenosis with RAN done, CHF Respiratory History: Reports: Intubation, Previous Gastrointestinal History: Reports: Cholelithiasis Endocrine/Metabolic History: Reports: Diabetes, Type II, Obesity/BMI 30+ Hematologic History: Reports: Iron Deficiency Oncologic (Cancer) History: Reports: Colon, Other (See Below) Other Oncologic History: skin cancer Dermatologic History: Reports: None - Infectious Disease History Infectious Disease History: Reports: Chicken Pox, Measles - Past Surgical History HEENT Surgical History: Reports: Adenoidectomy, Oral Surgery, Tonsillectomy Cardiovascular Surgical History: Reports: Coronary Artery Bypass, Valve Replacement Respiratory Surgical History: Reports: Thoracentesis GI Surgical History: Reports: Appendectomy, Cholecystectomy, Colonoscopy, Other (See Below) Other GI Surgeries/Procedures: colon resection Male Surgical History: Reports: Circumcision Endocrine Surgical History: Reports: None Musculoskeletal Surgical History: Reports: None Oncologic Surgical History: Reports: None Social & Family History - Family History Family Medical History: Noncontributory - Caffeine Use Caffeine Use: Reports: Coffee ED ROS GENERAL - Review of Systems Review Of Systems: See Below Constitutional: Reports: No Symptoms HEENT: Reports: No Symptoms Respiratory: Reports: No Symptoms Cardiovascular: Reports: No Symptoms Endocrine: Reports: No Symptoms GI/Abdominal: Reports: Abdominal Pain. Denies: Nausea, Vomiting : Reports: Frequency, Pain, Urgency, Urinary Retention Musculoskeletal: Reports: No Symptoms. Denies: Back Pain Skin: Reports: No Symptoms Neurological: Reports: No Symptoms Psychiatric: Reports: No Symptoms Hematologic/Lymphatic: Reports: No Symptoms Immunologic: Reports: No Symptoms ED EXAM, RENAL/ - Physical Exam Exam: See Below Exam Limited By: No Limitations General Appearance: Alert, WD/WN, No Apparent Distress Ears: Normal External Exam, Normal Canal, Hearing Grossly Normal Nose: Normal Inspection, Normal Mucosa, No Blood Throat/Mouth: Normal Inspection, Normal Lips, Normal Voice, No Airway Compromise Head: Atraumatic, Normocephalic Neck: Normal Inspection, Supple, Non-Tender, Full Range of Motion Respiratory/Chest: No Respiratory Distress, Lungs Clear, Normal Breath Sounds, No Accessory Muscle Use, Chest Non-Tender Cardiovascular: Regular Rate, Rhythm, No Edema, No Gallop, No Rub, Other ( midline scar, 2/6 HAKEEM at LSB, quiet precordium) GI/Abdominal: Normal Bowel Sounds, Soft, Other (mild tender suprapubic, bladder seems full 1/[address] to umbilicus) Back Exam: Normal Inspection, Full Range of Motion. No: CVA Tenderness (R), CVA Tenderness (L) Extremities: Normal Inspection, Normal Range of Motion, Non-Tender, No Pedal Edema Neurological: Alert, Oriented, CN II-XII Intact, Normal Cognition, No Motor/ Sensory Deficits Psychiatric: Normal Affect, Normal Mood Skin Exam: Warm, Dry, Intact, Normal Color, No Rash Lymphatic: No Adenopathy Course - Vital Signs Last Recorded V/S: Last Vital Signs Temp 36.6 C 01/09/18 19:10 Pulse 65 01/09/18 19:10 Resp 20 01/09/18 19:10 BP 167/61 H 01/09/18 19:10 Pulse Ox 99 01/09/18 19:10 - Orders/Labs/Meds Orders: Active Orders 24 hr Category Date Time Status Insert Urinary Catheter [OM.PC] Q24H Care 01/09/18 20:00 Ordered Urinary Catheter Assessment [RC] QSHIFT Care 01/09/18 19:57 Active CULTURE URINE [RM] Stat Lab 01/09/18 21:20 Ordered UA W/MICROSCOPIC [URIN] Stat Lab 01/09/18 20:08 Ordered Ciprofloxacin [Ciprofloxacin HCl] Med 01/09/18 21:38 Once 500 mg PO ONETIME ONE Labs: Laboratory Tests 01/09/18 01/09/18 01/09/18 Range/Units 20:08 20:45 20:45 WBC 6.3 (4.5-12.0) X10-3/uL RBC 4.19 L (4.30-5.75) x10(6)uL Hgb 12.8 (11.5-15.5) g/dL Hct 38.3 (30.0-51.3) % MCV 91.3 (80-96) fL MCH 30.6 (27.7-33.6) pg MCHC 33.5 (32.2-35.4) g/dL RDW 17.3 H (11.5-15.5) % Plt Count 182 (125-369) X10(3)uL MPV 7.9 (7.4-10.4) fL Neut % (Auto) 73.3 (46-82) % Lymph % (Auto) 14.6 (13-37) % [place] % (Auto) 8.8 (4-12) % Eos % (Auto) 2 (1.0-5.0) % Baso % (Auto) 1 (0-2) % Neut # (Auto) 4.5 (1.6-8.3) # Lymph # (Auto) 0.9 (0.6-5.0) # [place] # (Auto) 0.6 (0.0-1.3) # Eos # (Auto) 0.2 (0.0-0.8) # Baso # (Auto) 0.1 (0.0-0.2) # Sodium 139 (135-145) mmol/L Potassium 4.6 (3.5-5.3) mmol/L Chloride 103 (100-110) mmol/L Carbon Dioxide 25 (21-32) mmol/L BUN 20 H (7-18) mg/dL Creatinine 1.5 H (0.70-1.30) mg/dL Est Cr Clr Drug Dosing 39.17 mL/min Estimated GFR (MDRD) 46 L (>60) BUN/Creatinine Ratio 13.3 (9-20) Glucose 113 (80-116) mg/dL Calcium 9.0 (8.6-10.2) mg/dL Total Bilirubin 0.4 (0.1-1.3) mg/dL AST 30 H (5-25) IU/L ALT 43 H (12-36) U/L Alkaline Phosphatase 93 (56-112) IU/L C-Reactive Protein (0.5-0.9) mg/dL Total Protein 7.1 (6.0-8.0) g/dL Albumin 3.5 (3.2-4.6) g/dL Globulin 3.6 g/dL Albumin/Globulin Ratio 1.0 Urine Color Yellow (YELLOW) Urine Appearance Slightly cloudy (CLEAR) Urine pH 5.0 (5.0-6.5) Ur Specific [place] 1.010 (1.010-1.025) Urine Protein Negative (NEGATIVE) mg/dL Urine Glucose (UA) Normal (NEGATIVE) mg/dL Urine Ketones Negative (NEGATIVE) mg/dL Urine Occult Blood Trace (NEGATIVE) Urine Nitrite Negative (NEGATIVE) Urine Bilirubin Negative (NEGATIVE) Urine Urobilinogen Normal (NEGATIVE) mg/dL Ur Leukocyte Esterase Small H (NEGATIVE) Urine RBC 5-10 (0) Urine WBC 20-30 H (0) Ur Squamous Epith Cells Rare (NS,R,O) Urine Bacteria Rare H (NS) 01/09/18 Range/Units 20:45 WBC (4.5-12.0) X10-3/uL RBC (4.30-5.75) x10(6)uL Hgb (11.5-15.5) g/dL Hct (30.0-51.3) % MCV (80-96) fL MCH (27.7-33.6) pg MCHC (32.2-35.4) g/dL RDW (11.5-15.5) % Plt Count (125-369) X10(3)uL MPV (7.4-10.4) fL Neut % (Auto) (46-82) % Lymph % (Auto) (13-37) % [place] % (Auto) (4-12) % Eos % (Auto) (1.0-5.0) % Baso % (Auto) (0-2) % Neut # (Auto) (1.6-8.3) # Lymph # (Auto) (0.6-5.0) # [place] # (Auto) (0.0-1.3) # Eos # (Auto) (0.0-0.8) # Baso # (Auto) (0.0-0.2) # Sodium (135-145) mmol/L Potassium (3.5-5.3) mmol/L Chloride (100-110) mmol/L Carbon Dioxide (21-32) mmol/L BUN (7-18) mg/dL Creatinine (0.70-1.30) mg/dL Est Cr Clr Drug Dosing mL/min Estimated GFR (MDRD) (>60) BUN/Creatinine Ratio (9-20) Glucose (80-116) mg/dL Calcium (8.6-10.2) mg/dL Total Bilirubin (0.1-1.3) mg/dL AST (5-25) IU/L ALT (12-36) U/L Alkaline Phosphatase (56-112) IU/L C-Reactive Protein < 0.2 L (0.5-0.9) mg/dL Total Protein (6.0-8.0) g/dL Albumin (3.2-4.6) g/dL Globulin g/dL Albumin/Globulin Ratio Urine Color (YELLOW) Urine Appearance (CLEAR) Urine pH (5.0-6.5) Ur Specific [place] (1.010-1.025) Urine Protein (NEGATIVE) mg/dL Urine Glucose (UA) (NEGATIVE) mg/dL Urine Ketones (NEGATIVE) mg/dL Urine Occult Blood (NEGATIVE) Urine Nitrite (NEGATIVE) Urine Bilirubin (NEGATIVE) Urine Urobilinogen (NEGATIVE) mg/dL Ur Leukocyte Esterase (NEGATIVE) Urine RBC (0) Urine WBC (0) Ur Squamous Epith Cells (NS,R,O) Urine Bacteria (NS) - Re-Assessments/Exams Free Text/Narrative Re-Assessment/Exam: 01/09/18 21:39 pt now reports that he had gone to the ED in [facility] with a prostate infection and a R testicle that had swollen up like a golf ball, tx with an antbx x 2w, he thinks the antbx began with the letter "z", he saw Dr Hirsch after returning home and he did not continue the antbx beyond the 2w now on rectal exam pt has 2-3+ prostate that is smooth and symmetric, ballooning out, no nodule, mild pressure but no inc'd pain from usual on palpation, while technically not soft, it does feel distended and full of fluid pt agrees to f/u with Dr Hirsch u/a shows 20-30 WBC but only trace bacteria, which is c/w acute prostatitis Departure - Departure Time of Disposition: 21:42 Disposition: Home, Self-Care 01 Condition: Good Clinical Impression: Acute prostatitis, Urinary obstruction, Acute on chronic renal insufficiency, Elevated liver function tests - Discharge Information Prescriptions: Ciprofloxacin HCl [Cipro] 500 mg PO BID #28 tablet Instructions: Prostatitis, Indwelling Urinary Catheter Care, Adult, Easy-to- Read Referrals: Edmundo Glasgow MD [Primary Care Provider] - Forms: ED Department Discharge Additional Instructions: Continue current meds. For infection, take ciprofloxacin 500 mg 1 tab 2 times a day for 2 weeks. Empty the urine bag several times a day. See Dr Hirsch in the next several days. Return to ED if you are feeling worse. Call your Physician or Return to Emergency Department if: * Your condition worsens in any way. * You develop fever greater than 100.4. * You have vomitting that does not stop with medications. * You have pain that is not controlled with medications. - My Orders Last 24 Hours: My Active Orders 01/09/18 19:57 Urinary Catheter Assessment [[facility]] [facility] 01/09/18 20:00 Insert Urinary Catheter [OM.PC] Q24H 01/09/18 20:08 UA W/MICROSCOPIC [URIN] Stat 01/09/18 21:20 CULTURE URINE [RM] Stat 01/09/18 21:38 Ciprofloxacin [Ciprofloxacin HCl] 500 mg PO ONETIME ONE - Assessment/Plan Last 24 Hours: My Active Orders 01/09/18 19:57 Urinary Catheter Assessment [RC] [facility] 01/09/18 20:00 Insert Urinary Catheter [OM.PC] Q24H 01/09/18 20:08 UA W/MICROSCOPIC [URIN] Stat 01/09/18 21:20 CULTURE URINE [RM] Stat 01/09/18 21:38 Ciprofloxacin [Ciprofloxacin HCl] 500 mg PO ONETIME ONE
[2018-01-09] MEDS ORDERED: Ciprofloxacin 500 MG Tab PO ONE (21:38)
== END 2018-01-09 22:05 | disposition home or self-care (01) ==
LOC: FB.ED 19:10
DX: N41.0 Acute prostatitis (principal); R39.89 Other symptoms and signs involving the genitourinary system; R79.89 Other specified abnormal findings of blood chemistry; I13.0 Hypertensive heart and chronic kidney disease with heart failure and stage 1 through stage 4 chronic kidney disease, or unspecified chronic kidney disease; I50.9 Heart failure, unspecified; N13.9 Obstructive and reflux uropathy, unspecified; N18.9 Chronic kidney disease, unspecified; N28.9 Disorder of kidney and ureter, unspecified; E66.9 Obesity, unspecified; Z79.82 Long term (current) use of aspirin; Z79.899 Other long term (current) drug therapy
CPT/HCPCS: 36415; 51702; 51798; 80053; 81001; 85025; 86140; 87086; 99284; A9270

== ENCOUNTER 2018-01-13 16:51 | Emergency (ER) | payer MEDICARE, BC ==
[2018-01-13] MEDS: Lidocaine 2% Jelly 5 ML Urojet MUCMEM ONE (17:45)
[2018-01-14] MEDS: Lidocaine 2% Jelly 5 ML Urojet MUCMEM ONE (20:53)
--- NOTE | 2018-01-15 04:32 | ER ---
DATE SEEN: 01/13/2018 PAST MEDICAL HISTORY: Significant for hypertension, myocardial infarction, CVA, CABG, four-vessel disease, several stents placed, diabetes, borderline diabetes. History of weight dropped from 337 pounds down to 225 pounds. He lives alone in [place], [place]. Brain aneurysm with a clip in 1997, without complication. Colon cancer. Kidney infection . Major cystitis. Bladder and prostate obstruction. He has bovine aortic valve replacements. Takes aspirin on daily basis. REVIEW OF SYSTEMS: He has shortness of breath with walking, dyspnea on exertion 250 feet. Uses a walker, in mild weakness after recent infection. /[id number] SHYLA/ELDER
--- NOTE | 2018-01-15 13:53 | ER ---
DATE SEEN: 01/13/2018 TIME SEEN: The patient was seen at 1705 hours. HISTORY OF PRESENT ILLNESS: Evangelista has difficulty passing urine. He is 77 years old, has been seen by urologist 2 days ago. Catheter removed. The prior week, he had difficulty passing urine, so a #16 Cornejo catheter was placed and he has gotten along reasonably well. Now, he has a plugged catheter. He denies fever, back pain, shortness of breath, coughing, abdominal discomfort. He notes the urine is being passed around his catheter since 0300 to 0400 hours today. He is accompanied by his nephew, who notes the Cornejo is not draining. He has increased abdominal discomfort in the lower abdomen. On 01/09/2018, he had a Cornejo placed, was seen by [facility] urologist Dr. Valdez, ( another relative said Dr. Garcia is his regular urologist), 2 days ago, and has two large bladder stones within the bladder in addition to the enlarged prostate. Laser lithotripsy is planned with possible removal of bladder stones on 02/27/2018.An the family notes abigail is in the too distant future. Denies fever, nausea, vomiting, diarrhea, constipation, or blood in the stools. PAST MEDICAL HISTORY: History of diabetes, previous kidney stones, DVT prophylaxis, hypertension, hyperlipidemia, cystitis, knee pain, bilateral knee arthritis, and acute prostatitis. CURRENT MEDICATIONS: 1. Iron sulfate. 2. Aspirin. 3. Amiodarone 400 mg. 4. Acetaminophen. 5. Finasteride 5 mg. 6. Flomax 0.8 mg at bedtime. 7. Potassium citrate. 8. Metoprolol tartrate 12.5 mg daily. 9. Glucosamine chondroitin. 10.Metformin 1000 mg b.i.d. 11.BuSpar 10 mg b.i.d. 12.Atorvastatin 10 mg at bedtime. ALLERGIES: None. REVIEW OF SYSTEMS: Negative except as noted above. PHYSICAL EXAMINATION: VITAL SIGNS: Blood pressure 151/55, heart rate 70 and regular, respirations 18, oxygen saturation 99%, and temperature is 36.6 degrees centigrade. GENERAL: This is an overweight gentleman who is in moderate discomfort. He has a very pleasant disposition. HEENT: Without abnormality. LUNGS: Clear without rales or rhonchi. HEART: S1, S2. No murmur. He does have sinus rhythm. ABDOMEN: Soft and suprapubic discomfort. Moderate distention with tenderness to suprapubic region. No CVA percussion tenderness. Genitalia negative with a catheter in place. It is plugged though and urine semi-dark urine. EXTREMITIES: Lower extremities with trace of edema. Deep tendon reflexes hypoactive. Cornejo catheter was placed with lidocaine gel without difficulty or complications A bladder scan initially 55 mL noted pre- catheter placement. Consequently, hydration increased. He had moderate cloudy urine. Old catheter was removed. A new catheter was placed because there was fair flow, the bladder was flushed, and resulted in better flows of the catheter. A 20 mL normal saline bladder flush resulted in immediate return of cloudy urine. Urine Cornejo bag reconnected to the system. The patient was then dismissed to follow up with the urologist as soon as he can make those arrangements. Use (Cipro) antibiotics he is currently on. /[id number] SHYLA/ELDER AYALA
== END 2018-01-13 18:10 | disposition home or self-care (01) ==
LOC: FB.ED 16:51
DX: T83.091A Other mechanical complication of indwelling urethral catheter, initial encounter (principal); N41.9 Inflammatory disease of prostate, unspecified; N13.9 Obstructive and reflux uropathy, unspecified; E11.9 Type 2 diabetes mellitus without complications; I10 Essential (primary) hypertension; Z79.899 Other long term (current) drug therapy
CPT/HCPCS: 51702; 51798; 99283

== ENCOUNTER 2018-01-15 11:47 | Emergency (ER) | payer MEDICARE, BC ==
[2018-01-15] MEDS: Balsam Peru/Castor Oil/Trypsin Spray 56.7 GM Canister TOP SCH (12:40)
[2018-01-15] MEDS: Balsam Peru/Castor Oil/Trypsin Spray 56.7 GM Canister ONE (12:40)
--- NOTE | 2018-01-16 11:38 | ER ---
DATE SEEN: 01/15/2018 TIME SEEN: The patient was seen after his arrival. HISTORY OF PRESENT ILLNESS: Evangelista Chandler was seen frequently this last week. He is a 77-year-old male with diabetes; renal stones; DVT prophylaxis, not on anticoagulants, presently uses aspirin; hypertension; dyslipidemia; cystitis; knee pain; bilateral knee arthritis; prostatism; urinary outlet obstruction; history of myocardial infarction; CVA; four-vessel CABG, several stents; weight loss from 337 to 225 pounds; brain aneurysm clipping in 1997; colon cancer; renal infection, 11/18; and bovine aortic valve replacement with aspirin. CURRENT MEDICATIONS: As listed on the previous day's dictation: 1. Iron. 2. Aspirin. 3. Amiodarone. 4. Acetaminophen. 5. Finasteride. 6. Flomax. 7. Potassium. 8. Metoprolol. 9. Glucosamine. 10.Metformin. 11.BuSpar. 12.Atorvastatin. The patient specifically was seen by urologist on 01/11/2018. Arrangements were made for 02/27/2018, lithotripsy of 2 stones in his bladder. He now comes in on 01/15/2018 after having been seen for his bladder problem. He had a 16-gauge catheter placed approximately a week ago because of outlet obstruction because of the stones and increased sediments in the bladder. On 01/13/2018 complained that he cannot pass urine, his catheter is plugged, and he is passing urine around his catheter, subsequently catheter was replaced. Now, he has returned 2 days later with complaints that he has pain in his bladder and also he cannot pass urine, and urine is going around the catheter. He sees Dr. Garcia. On examination, the patient is in moderate distress. He is "out of sorts." He is here with his granddaughter and nephew. He stated that he cannot go on like this. He needs to have something done, and he cannot go back and forth to the emergency room every other day. He had difficulty sleeping last night. Currently, he is taking Cipro 500 mg b.i.d. and has been on it for at least 7 days. REVIEW OF SYSTEMS: He denies fever, back pain, sore throat, chest pain, irregular heartbeat, shortness of breath, or cough. He has mild suprapubic discomfort, most of the discomfort in the penis and scrotum. On examination, he has ulcers being developed on the foreskin on the right-hand side, at the catheter's exit. The catheter is somewhat taut and is tethered by the catheter leg support. It is tighter than it should be. I have discussed the patient's status with Dr. Garcia. Arrangements were made for Interventional Radiology to place a suprapubic catheter until he gets his lithotripsy completed, per Dr. Garcia who thought perhaps can be completed next week. This is a great relief to the patient and his family. This diminished his stress. They feel like this can bring closure to the problem. I have spoken to Dr. Fonseca, Interventional Radiology, that he would be willing to have this procedure completed today ( this evening) at the hospital and get there before 1630 hours. The patient has been n.p.o. Arrangements have been made. The catheter was removed in the ER per his request and previous discussion. We are waiting for further disposition. The office of Dr. Garcia has done a wonderful job, bringing closure and making arrangements for the suprapubic Interventional Radiology to be done today. The patient is relieved and pleased. He can be transferred by his nephew to [facility], n.p.o. DIAGNOSES: Prostatism with outlet obstruction, relieved by catheterization with 2 large stones of bladder causing increased debris and exfoliation of intra- vesicle debris, plugging of catheters frequently. Lithotripsy to be performed. OTHER DIAGNOSES: Diabetes, bovine aortic valve replacement, brain aneurysm clipping, colon cancer, CABG four-vessel, several stents, hypertension, myocardial infarction, old cerebrovascular accident, previous DVT and is no longer on prophylaxis, hypertension, dyslipidemia, knee pain, bilateral knee arthritis. /[id number] SHYLA/ELDER AYALA
== END 2018-01-15 14:25 | disposition other institution (70) ==
LOC: FB.ED 11:47
DX: N40.1 Benign prostatic hyperplasia with lower urinary tract symptoms (principal); N13.8 Other obstructive and reflux uropathy; E11.9 Type 2 diabetes mellitus without complications; I25.2 Old myocardial infarction; I10 Essential (primary) hypertension; Z79.84 Long term (current) use of oral hypoglycemic drugs; Z86.73 Personal history of transient ischemic attack (TIA), and cerebral infarction without residual deficits; Z86.718 Personal history of other venous thrombosis and embolism
CPT/HCPCS: 99283; A9270

== ENCOUNTER 2018-01-28 20:58 | Emergency (ER) | payer MEDICARE, BC ==
[2018-01-28] MEDS ORDERED: Fluconazole 150 MG Tab PO ONE (22:20)
[2018-01-28] MEDS ORDERED: Sulfamethoxazole/Trimethoprim 800-160 MG Tab PO ONE (22:27)
--- NOTE | 2018-01-29 02:01 | ER ---
DATE SEEN: 01/28/2018 REASON FOR VISIT: Evaluate for infection. HISTORY OF PRESENT ILLNESS: This is a 77-year-old male here with the family. He had a suprapubic catheter placed about 2 weeks ago. They have noted purulent drainage from the wound and not much drainage into the bag. In addition, he has been weak and feeling unmotivated but has had no fever or chills. He was supposed to have a TURP last week but had hyperkalemia, and the surgery was rescheduled. REVIEW OF SYSTEMS: All other systems are negative. PAST MEDICAL HISTORY: Debility, yeast cystitis, hypertension, chronic kidney disease, type 2 diabetes, and obesity. MEDICATIONS: Updated. ALLERGIES: Updated. PHYSICAL EXAMINATION: GENERAL: He is well nourished. VITAL SIGNS: His blood pressure is 144/54 and his temperature 98.0. ABDOMEN: Soft. The suprapubic area wound appears purulent, red, and hard beneath the surface but no warmth to palpation. LABORATORIES: Normal labs, including ESR and CRP. Lactic acid was 2.4. White cell count 6.8. UA showed cystitis with 50 to 75 white cells and yeast in the urine. RADIOGRAPHIC DATA: A bladder scan revealed only about 100 mL of urine, and the suprapubic catheter was flushed and was working properly. IMPRESSION: 1. Yeast cystitis. 2. Surgical wound infection. PLAN: My plan is continue current medications. I gave him 150 mg of Diflucan 1 time and daily for another 1 week. I recommended discontinuing cephalexin in favor of Bactrim DS 1 tablet b.i.d. Family will call the urologist tomorrow to discuss rescheduled TURP surgery and cystoscopy. /[id number] SAMM/ALBERTOL
== END 2018-01-28 23:02 | disposition home or self-care (01) ==
LOC: FB.ED 20:58
DX: T81.4XXA Infection following a procedure, initial encounter (principal); B37.41 Candidal cystitis and urethritis; I12.9 Hypertensive chronic kidney disease with stage 1 through stage 4 chronic kidney disease, or unspecified chronic kidney disease; E11.22 Type 2 diabetes mellitus with diabetic chronic kidney disease; N18.9 Chronic kidney disease, unspecified; E66.9 Obesity, unspecified; Z68.37 Body mass index [BMI] 37.0-37.9, adult
CPT/HCPCS: 36415; 51798; 80048; 81001; 83605; 85025; 85651; 86140; 99282; 99283; A9270-GY